=== PATIENT | female | born 1950 | race Caucasian/White ===

== ENCOUNTER → 2024-01-18 11:27 | Outpatient (REF) | payer MEDICARE, SELFPAY | LOC: HWRAD 11:27 | PROVIDERS: ATTENDING PHYSICIAN Internal Medicine Critical Care Medicine; FAMILY PHYSICIAN Nurse Practitioner Adult Health | DX: R91.8 Other nonspecific abnormal finding of lung field (principal); R06.09 Other forms of dyspnea | CPT/HCPCS: 71250 ==

== ENCOUNTER → 2024-02-15 11:35 | Outpatient (REF) | payer MEDICARE, SELFPAY | LOC: HWLAB 11:35 | PROVIDERS: ATTENDING PHYSICIAN Nurse Practitioner Adult Health | DX: N39.0 Urinary tract infection, site not specified (principal) | CPT/HCPCS: 87086 ==

== ENCOUNTER → 2024-03-14 14:37 | Outpatient (REF) | payer MEDICARE, SELFPAY | LOC: HWRAD 14:37 | PROVIDERS: ATTENDING PHYSICIAN Specialist; FAMILY PHYSICIAN Nurse Practitioner Adult Health | DX: M46.1 Sacroiliitis, not elsewhere classified (principal) | CPT/HCPCS: 72192 ==

== ENCOUNTER → 2024-05-16 08:48 | Outpatient (REF) | payer MEDICARE, SELFPAY | LOC: HWWDC 08:48 | PROVIDERS: ATTENDING PHYSICIAN Nurse Practitioner Adult Health | DX: Z12.31 Encounter for screening mammogram for malignant neoplasm of breast (principal) | CPT/HCPCS: 77063; 77067 ==

== ENCOUNTER → 2024-08-19 08:12 | Outpatient (REF) | payer MEDICARE, SELFPAY | LOC: HWRAD 08:12 | PROVIDERS: ATTENDING PHYSICIAN Nurse Practitioner Adult Health | DX: Z78.0 Asymptomatic menopausal state (principal) | CPT/HCPCS: 77080 ==

== ENCOUNTER → 2024-09-05 08:57 | Outpatient (REF) | payer MEDICARE, SELFPAY | LOC: HWRAD 08:57 | PROVIDERS: ATTENDING PHYSICIAN Physician Assistant; FAMILY PHYSICIAN Nurse Practitioner Adult Health | DX: E34.9 Endocrine disorder, unspecified (principal); E83.52 Hypercalcemia | CPT/HCPCS: 76536 ==

== ENCOUNTER 2025-05-01 21:08 | Emergency (ER) | payer MEDICARE, SELFPAY ==
[2025-05-01 21:12] VITALS: BP 138/78; BMI 44.6
[2025-05-01 21:15] VITALS: BP 138/78
[2025-05-01 21:51] LABS: ALT (SGPT) 45 U/L (0-35); AST (SGOT) 38 U/L (14-36); Albumin 4.3 g/dl (3.5-5.0); Alkaline Phosphatase 112 U/L (38-126); Blood Urea Nitrogen 26 mg/dl (7-17); Calcium 9.3 mg/dl (8.4-10.2); Carbon Dioxide 28 mmol/L (22-30); Chloride 107 mmol/L (98-107); Estimated Creatinine Clearance 84 ml/min; Glucose 122 mg/dl (70-99); Sodium 142 mmol/L (135-145); Total Bilirubin 0.8 mg/dl (0.2-1.3); Total Protein 6.4 g/dl (6.3-8.2); eGFR > 60.00
[2025-05-01] MEDS: NSS 500 IV (21:51)
[2025-05-01] MEDS: ZOFRAN 4 MG IV ×2 (21:53→22:46)
[2025-05-01 22:00] VITALS: BP 149/75
[2025-05-01 22:00] LABS: Hematocrit 38.4 % (37.0-47.0); Hemoglobin 12.7 g/dL (12.0-16.0); Mean Corp Hgb Conc. 33.1 g/dL (33.0-37.0); Mean Corpuscular Hgb 30.6 pg (27.0-31.0); Mean Corpuscular Volume 92.5 fL (81.0-99.0); Mean Platelet Volume 10.8 fL (7.4-10.4); Platelet Count 106 10^3/uL (130-400); Red Blood Cell Count 4.15 10^6/uL (4.20-5.40); Red Cell Dist. Width 14.9 % (11.5-14.5); White Blood Cell Count 6.5 10^3/uL (4.8-10.8)
[2025-05-01 22:01] LABS: Absolute Neutrophils -Man Diff 3.1 10^3/uL (1.4-6.5); Atypical Lymphocytes 14 %; Band Neutrophils 0 % (0-3); Eosinophils 2 % (0-6); Lymphocytes 31 % (20-51); Monocytes 5 % (2-9); Platelets Checked Yes; Segmented Neutrophils 48 % (42-75)
[2025-05-01 22:02] LABS: Anisocytosis 1+; Macrocytosis 1+; Normal RBC Morphology No
[2025-05-01 22:03] LABS: Ovalocytes Slight; Polychromasia Slight
[2025-05-01 22:04] LABS: Microcytosis Slight; Total Cells Counted 100
--- NOTE | 2025-05-01 22:14 | EDRN ---
patient reports her nausea is slightly better, will continue to monitor, placed bedside commode at bedside incase she has to urinate per patients request
[2025-05-01 22:42] LABS: Troponin I < 0.012 ng/ml
--- NOTE | 2025-05-01 22:45 | EDRN ---
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
[2025-05-01 23:00] VITALS: BP 142/74
[2025-05-01] MEDS: ZOFRAN ODT (ORALLY DISINTEGRATING) 4 MG PO (23:42)
[2025-05-01] MEDS: ANTIVERT 12.5 MG PO (23:42)
--- NOTE | 2025-05-02 00:21 | ED.GENMED ---
History of Present Illness
General
Chief Complaint: Dizziness
Source: patient
Exam Limitations: none
Time Seen by Provider: 05/01/25 21:29
Nursing documentation reviewed up to this point in time: agreed with
History of Present Illness
History of Present Illness:
Patient states she was sitting watching TV and developed sudden onset of dizziness (room spinning). +n/v. Brought to ED via EMS for eval. Denies fever/chills, rrecent illness. No prior history of same. Denies chest pain/pressure, SOB. No abd.
pain. Report headache overnight but this has resolved.
Past History
Past History
ED Past Medical History: CAD, Cancer (Leukemia), HTN, Hypercholesterolemia and Other (Tinnitus)
ED Past Surgical History: Orthopedic (Left knee replacement)
Social History
Tobacco: Non-smoker
Personal:
Review of Systems
Review of Systems
Allergies reviewed?: Yes
All Other Systems: ROS reviewed and negative except as documented in HPI and ROS
Constitutional: Reports no symptoms
EENT: Reports no symptoms
Respiratory: Reports no symptoms
Cardiac: Reports no symptoms
ABD/GI: Reports nausea and vomiting
: Reports no symptoms
Musculoskeletal: Reports no symptoms
Skin: Reports no symptoms
Neurological: Reports dizzy
Psychiatric: Reports no symptoms
Phy Exam
General Physical Exam
General Presentation: moderate distress
General age: appears stated age
General Skin: warm and dry
General Habitus: normal
General Mental: alert
ENT Exam
ENT Exam: EOMI, TM's normal and neck supple
Eye Exam
Eye Exam: PERRL, EOMI, conjunctiva normal, globe normal and other (No nystagmus)
Cardiovascular Exam
Cardiovascular Exam: regular rate/rhythm
Pulmonary Exam
Pulmonary Exam: lungs clear and no respiratory distress
Gastrointestinal Exam
Gastrointestinal Exam: non tender and soft
Neurological Exam
Neurological Exam: alert, oriented x3, CN II-XII intact, no motor deficits, no sensory deficits and speech normal
Musculoskeletal Exam
Musculoskeletal Exam: full ROM and neuro vasc intact
Skin Exam
Skin Exam: normal color, warm/dry and no rash
Psychiatric Exam
Psychiatric Exam: normal mood/affect
Course
Orders/Labs/Results
Orders:
Orders
05/01/25 21:09
EKG [Electrocardiogram (*1)] Urgent
Reason for Study: Vertigo / Dizzy
EKG- Treatment ONCE
05/01/25 21:18
IV Insert/Care/Rem.- Treatment PRN
05/01/25 21:20
Complete Blood Count/With Diff Urgent
Comprehensive Metabolic Panel Urgent
Manual Differential Urgent
05/01/25 21:44
0.9% Sodium Chloride 1000 ml [Nss] 1,000 ml IV BOLUS
Ondansetron Injectable [Zofran] 4 mg IV NOW STA
05/01/25 21:46
CT Head W/o Iv Contrast Urgent
Comment:
Reason For Exam: dizziness
05/01/25 21:51
0.9% Sodium Chloride 500 ml [Nss] 500 ml IV BOLUS
05/01/25 22:10
Troponin I Urgent
05/01/25 22:44
Ondansetron Injectable [Zofran] 4 mg .ROUTE .STK-MED ONE
05/01/25 22:45
Ondansetron Injectable [Zofran] 4 mg IV NOW STA
05/01/25 23:30
Meclizine [Antivert] 12.5 mg PO NOW STA
Ondansetron Injectable [Zofran] 4 mg IV NOW STA
05/01/25 23:34
Ondansetron Orally Disint [Zofran Odt (Orally Disintegrating)] 4 mg PO NOW STA
Abnormal Lab Results
05/01/25
21:20
RBC 4.15 L 10^6/uL
(4.20-5.40)
RDW 14.9 H %
(11.5-14.5)
Plt Count 106 L 10^3/uL
(130-400)
MPV 10.8 H fL
(7.4-10.4)
BUN 26 H mg/dl
(7-17)
Glucose 122 H mg/dl
(70-99)
AST 38 H U/L
(14-36)
ALT 45 H U/L
(0-35)
05/01/25 21:20
05/01/25 21:20
Vital Signs
Initial and Last Documented VS:
Initial Vital Signs
Resp
9
05/01/25 21:10
Last Documented Vital Signs
Temp Pulse Resp BP Pulse Ox
98.2 F 61 17 142/74 98
05/01/25 21:12 05/01/25 23:45 05/01/25 23:45 05/01/25 23:00 05/01/25 21:45
*Radiology
Radiology exam reviewed: radiology read reviewed
*Pulse Oximetry
Patient hypoxic: no
*Critical Care Note
Total Time (30-74mins, 75-104mins- exclusive of procedures): Not Applicable
Update Note
Update Note:
Patient to ED with report of sudden onset of dizziness, n/v. Dizzines began to resolve on way to ED and is now resolved. Nausea improved iwth zofran. Labs, CT results reviewed iwth patient and spouse. No concerning findings on clinical exam.
WIll discharge home, given rx for meclizine and zofran prn. Will follow upw tih PCP. Given instructions on s/s to return to ED and she is agreeable to plan.
ED Attending Note
-
Portions of this chart may have been created with voice recognition software.� Occasional wrong word or��sound alike� substitutions may have occurred due to the inherent limitations of voice recognition software.
Discharge Plan
Departure
Patient Disposition: Home (Routine Discharge)
Date of Disposition: 05/01/25
Time of Disposition: 23:31
Patient with high blood pressure during this ER visit?: No
Condition: Good
Covid-19: Not Applicable
Discharge Problem:
Dizziness
Instructions: Dizziness
Prescriptions:
New
meclizine 12.5 mg tablet
12.5 mg PO TID PRN (Reason: dizziness) Qty: 14 0RF
ondansetron 4 mg tablet,disintegrating
4 mg PO Q8H PRN (Reason: nausea and vomiting) 4 Days Qty: 12 0RF
No Action
aspirin 81 MG tablet,chewable
81 mg PO DAILY
rosuvastatin 5 MG tablet
20 mg PO HS
nebivolol 10 MG tablet
20 mg PO BID
nitroglycerin 0.4 MG tablet, sublingual
0.4 mg sublingual [id number] PRN (Reason: chest pain)
cyclosporine [Restasis] 10 DROPS dropperette
1 drp BOTH EYES BID
furosemide 40 mg Tablet
40 mg PO DAILY
ezetimibe [Zetia] 10 mg Tablet
10 mg PO DAILY
Xarelto 20 mg Tablet
20 mg PO QPM
Vitamin D (with calcium)
2,000 unit PO DAILY
rosuvastatin [Crestor] 20 mg Tablet
20 mg PO DAILY
magnesium 200 mg Tablet
400 mg PO BID
pantoprazole [Protonix] 40 mg Tablet,Delayed Release (Dr/Ec)
40 mg PO DAILY
Prolia 60 mg/mL Syringe
60 mg SC [id number]
Referrals:
Perla Sue CRNP [Family Provider, General] - Tomorrow
Activity Restrictions/Additional Instructions:
REturn to the emergency department immediately for any changes in/worsening of your symptoms
Interventions
Interventions:
*Risk Screen - Suicide Last Done: 05/01/25 21:12
*General Assessment Last Done: 05/01/25 21:12
*Neglect/Abuse Screening Last Done: 05/01/25 21:12
*ED- Fall Risk Assessment Last Done: 05/02/25 00:00
*ED COVID-19 Vaccine History Last Done: 05/01/25 21:12
*Nursing Disposition Last Done: 05/02/25 00:00
ED- Neurological Assessment Last Done: 05/01/25 21:19
ED- Cardiac Assessment Last Done: 05/01/25 21:19
Discharge Date and Time
Discharge Date/Time: 05/02/25 00:02
Print Language: ESTONIAN
== END 2025-05-02 00:02 | disposition home or self-care (01) ==
LOC: EMR 21:08
PROVIDERS: Nurse Practitioner; EMERGENCY PHYSICIAN Student in an Organized Health Care Education/Training Program; FAMILY PHYSICIAN Nurse Practitioner Adult Health
DX: R42 Dizziness and giddiness (principal); I25.10 Atherosclerotic heart disease of native coronary artery without angina pectoris; I10 Essential (primary) hypertension; E78.00 Pure hypercholesterolemia, unspecified; I48.91 Unspecified atrial fibrillation; Z96.652 Presence of left artificial knee joint
CPT/HCPCS: 99284; 96374; 96376; 96361; 70450; 80053; 84484; 85025; 93005

== ENCOUNTER → 2025-05-17 08:31 | Outpatient (REF) | payer MEDICARE, SELFPAY | LOC: HWWDC 08:31 | PROVIDERS: ATTENDING PHYSICIAN Nurse Practitioner Adult Health | DX: Z12.31 Encounter for screening mammogram for malignant neoplasm of breast (principal) | CPT/HCPCS: 77063; 77067 ==